=== PATIENT | female | born 1970 | race Caucasian/White ===

== ENCOUNTER 2023-06-16 08:12 | Outpatient (CLI) | payer OTHER | END 2023-06-16 08:13 | disposition home or self-care (01) | LOC: NM 08:12 | PROVIDERS: ATTEND Internal Medicine Endocrinology, Diabetes & Metabolism | DX: E05.90 Thyrotoxicosis, unspecified without thyrotoxic crisis or storm (principal); R94.6 Abnormal results of thyroid function studies | CPT/HCPCS: 78014; A9516 ==